=== PATIENT | male | born 1970 | race Caucasian/White ===

== ENCOUNTER 2017-02-20 17:34 | Emergency (ER) | payer MEDICAID, OTHER ==
[~2017-02-20] VITALS: Ht 188 cm; Wt 111.1 kg
--- NOTE | 2017-02-20 17:34 | NUR ---
R FOOT PAIN S/P ROLLING FOOT IN SIDEWALK YESTERDAY. NAD NOTED. PT AAO X4. AMB WITH STEADY GAIT. RR EVEN AND UNLABORED. PENDING MD SPENCE.
[2017-02-20 18:08] VITALS: BP 119/84
[2017-02-20] MEDS ORDERED: IBUPROFEN 400 MG TABLET ONE (18:18)
[2017-02-20] MEDS: IBUPROFEN 400 MG TABLET PO ONE (18:23)
--- NOTE | 2017-02-20 18:30 | NUR ---
XRAY AT BEDSIDE
== END 2017-02-20 21:13 | disposition home or self-care (01) ==
LOC: ER 17:35
DX: S92.354A Nondisplaced fracture of fifth metatarsal bone, right foot, initial encounter for closed fracture (principal); X58.XXXA Exposure to other specified factors, initial encounter; Y93.01 Activity, walking, marching and hiking; Y92.89 Other specified places as the place of occurrence of the external cause; Y99.9 Unspecified external cause status
CPT/HCPCS: 73630; 99284; A4606; Z7610